=== PATIENT | female | born 1980 | race Caucasian/White ===

== ENCOUNTER 2017-07-12 12:47 | Emergency (ER) | payer BC, OTHER ==
--- NOTE | 2017-07-12 13:49 | ED Physician Documentation ---
History of Present Illness - Stated complaint Stated Complaint: BLEED/FEMALE - Chief complaint Chief Complaint: General - History obtained from History obtained from: Patient - History of Present Illness Timing: Other (This is a G 12 P4 who had a last normal menses approximately 4 weeks ago. She ovulated about 2 weeks ago and about a week ago had a faintly positive test and has had light vaginal bleeding without which is now gone without any pain. 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- and she was referred here by her OB in [place] for a RhoGam shot as her OB is on vacation.) Review of Systems Constitutional: reports: Reviewed and negative Cardiac: reports: Reviewed and negative Respiratory: reports: Reviewed and negative PD PAST MEDICAL HISTORY - Past Medical History Past Medical History: Yes Cardiovascular: Deep vein thrombosis, Other Other Past Medical History: RH+ - Past Surgical History Past Surgical History: Yes /WEAVING [employer]PER[employer]: section - Present Medications Home Medications: Ambulatory Orders Medication Instructions Recorded Confirmed No Known Home Medications [No 07/12/17 07/12/17 Known Home Medications] - Allergies Allergies/Adverse Reactions: Allergies Allergy/AdvReac Type Severity Reaction Status Date / Time No Known Drug Allergies Allergy Verified 07/12/17 13:01 - Social History Does the pt smoke?: No Smoking Status: Never smoker Does the pt drink ETOH?: No Does the pt have substance abuse?: No - Immunizations Immunizations are current?: No PD ED PE NORMAL - Vitals Vital signs reviewed: Yes - General General: Alert and oriented X 3, No acute distress - Abdomen Abdomen: Soft, Non tender - Neuro Neuro: Alert and oriented X 3, Normal speech - Psych Psych: Normal mood, Normal affect Results - Vitals Vitals: Vital Signs - 24 hr 07/12/17 13:02 Temperature 36.3 C L Heart Rate 66 Respiratory 18 Rate Blood Pressure 126/84 H O2 Saturation 100 Oxygen O2 Source Room air - Labs Labs: Laboratory Tests 07/12/17 14:13 HCG, Quant < 0.60 PD MEDICAL DECISION MAKING - ED course ED course: 36-year-old woman was referred here for potential RhoGam shot after a Faintly positive test at home followed by 2 negative tests. A beta- hCG was checked and undetectable here making RhoGam unnecessary. Departure - Departure Disposition: Home, Self Care Clinical Impression: Vaginal bleeding Condition: Good Record reviewed to determine appropriate education?: Yes Comments: Recheck as needed, your beta-hCG on the blood work is undetectable at this juncture so no specific follow-up is needed unless you have further issues. Your blood pressure was elevated today on check into the emergency department. This does not mean that you have hypertension, it is a common phenomenon to come to the emergency department and have elevated blood pressure. I recommend that you see your primary care physician within the week to have it rechecked when you are feeling better.
[2017-07-12 15:01] VITALS: BP 117/84
== END 2017-07-12 15:00 | disposition home or self-care (01) ==
LOC: ED 12:47
DX: N93.9 Abnormal uterine and vaginal bleeding, unspecified (principal); Z67.90 Unspecified blood type, Rh positive; R03.0 Elevated blood-pressure reading, without diagnosis of hypertension
CPT/HCPCS: 36415; 84702; 86900; 86901; 99282; 99283

== ENCOUNTER 2017-12-09 08:00 | Outpatient (CLI) | payer OTHER ==
[2017-12-09 19:28] LABS: BILIRUBIN,URINE NEGATIVE (NEGATIVE); GLUCOSE, URINE (UA) NEGATIVE (NEGATIVE); KETONES,URINE (UA) NEGATIVE (NEGATIVE); LEUKOCYTE ESTERASE, URINE NEGATIVE (NEGATIVE); NITRITE,URINE NEGATIVE (NEGATIVE); OCCULT BLOOD,URINE SMALL (NEGATIVE); PROTEIN,URINE NEGATIVE (NEGATIVE); UROBILINOGEN,URINE 0.2 (NORMAL) E.U./dL (NORMAL)
[2017-12-09 19:29] LABS: CLARITY,URINE CLEAR (CLEAR)
[2017-12-09 19:43] LABS: BACTERIA,URINE Rare /HPF (None Seen); RBC,URINE TNTC /HPF (0-5); SQUAMOUS EPITHELIAL CELL,UR RARE Squamous (<= Few)
== END 2017-12-09 08:01 | disposition home or self-care (01) ==
LOC: LAB.R 08:00
PROVIDERS: ATTEND Physician Assistant Medical
DX: N30.00 Acute cystitis without hematuria (principal)
CPT/HCPCS: 81001; 87086

== ENCOUNTER 2018-01-24 07:19 | Outpatient (CLI) | payer OTHER ==
[2018-01-24 10:41] LABS: BASOPHILS # (AUTO) 0.1 10^3/uL (0.0-0.1); BASOPHILS % (AUTO) 0.7 %; EOSINOPHILS # (AUTO) 0.4 10^3/uL (0.0-0.7); EOSINOPHILS % (AUTO) 4.3 %; HGB - HEMOGLOBIN 14.2 g/dL (12.0-16.0); LYMPHOCYTES # (AUTO) 2.6 10^3/uL (1.5-3.5); MEAN CORPUSCULAR HEMOGLOBIN 29.8 pg (27.0-31.0); MEAN CORPUSCULAR HGB CONC 35.3 g/dL (32.0-36.0); MEAN CORPUSCULAR VOLUME 84.5 fL (81.0-99.0); MEAN PLATELET VOLUME 9.8 fL (7.9-10.8); MONOCYTES # (AUTO) 0.6 10^3/uL (0.0-1.0); MONOCYTES % (AUTO) 7.2 %; NEUTROPHILS # (AUTO) 4.8 10^3/uL (1.5-6.6); NEUTROPHILS % (AUTO) 56.8 %; PLT - PLATELET COUNT 188 10^3/uL (130-450); RED BLOOD COUNT 4.75 10^6/uL (4.20-5.40); RED CELL DISTRIBUTION WIDTH 13.7 % (12.0-15.0); WHITE BLOOD COUNT 8.5 x10^3/uL (4.8-10.8)
[2018-01-24 10:47] LABS: ALBUMIN 4.3 g/dL (3.2-5.5); ALBUMIN/GLOBULIN RATIO 1.5 (1.0-2.2); ALKALINE PHOSPHATASE 43 IU/L (42-121); ALT ALANINE AMINOTRANSFERASE 24 IU/L (10-60); AST ASPARTATE AMINOTRANSFERASE 18 IU/L (10-42); BILIRUBIN,TOTAL 0.7 mg/dL (0.2-1.0); BUN - BLOOD UREA NITROGEN 21 mg/dL (6-20); CALCIUM 8.9 mg/dL (8.5-10.3); CARBON DIOXIDE - CO2 23 mmol/L (21-32); CHLORIDE 108 mmol/L (101-111); CHOL/HDL RATIO 6.4 (<4.4); CHOLESTEROL 211 mg/dL; CREATININE 0.8 mg/dL (0.4-1.0); GFR - MDRD 80 (>89); GLUCOSE 110 mg/dL (70-100); HDL CHOLESTEROL 33 mg/dL; LDL CHOLESTEROL,CALCULATED 156 mg/dL; LDL/HDL RATIO 4.7 (<4.4); SODIUM 138 mmol/L (135-145); TOTAL PROTEIN 7.2 g/dL (6.7-8.2); VLDL CHOLESTEROL 22 mg/dL
[2018-01-24 10:48] LABS: BILIRUBIN,URINE NEGATIVE (NEGATIVE); GLUCOSE, URINE (UA) NEGATIVE (NEGATIVE); KETONES,URINE (UA) NEGATIVE (NEGATIVE); LEUKOCYTE ESTERASE, URINE NEGATIVE (NEGATIVE); NITRITE,URINE NEGATIVE (NEGATIVE); OCCULT BLOOD,URINE TRACE-LYSE (NEGATIVE); PH,URINE 5.5 PH (5.0-7.5); PROTEIN,URINE NEGATIVE (NEGATIVE); UROBILINOGEN,URINE 0.2 (NORMAL) E.U./dL (NORMAL)
[2018-01-24 11:11] LABS: CLARITY,URINE CLEAR (CLEAR)
[2018-01-24 11:12] LABS: BACTERIA,URINE Rare /HPF (None Seen); RBC,URINE 0-5 /HPF (0-5); SQUAMOUS EPITHELIAL CELL,UR RARE Squamous (<= Few)
[2018-01-24 19:58] LABS: HB2 TOTAL 15.1 g/dL; HEMOGLOBIN A1C 0.49 g/dL; HEMOGLOBIN A1C % 5.1 % (4.6-6.2)
== END 2018-01-24 07:20 | disposition home or self-care (01) ==
LOC: LAB.F 07:19
PROVIDERS: ATTEND Physician Assistant Medical
DX: Z00.00 Encounter for general adult medical examination without abnormal findings (principal); N30.00 Acute cystitis without hematuria; E55.9 Vitamin D deficiency, unspecified; R73.01 Impaired fasting glucose
CPT/HCPCS: 36415; 80053; 80061; 81001; 82306; 83036; 83721; 84439; 84443; 85025; 87086

== ENCOUNTER 2018-02-08 10:39 | Outpatient (CLI) | payer OTHER | END 2018-02-08 10:40 | disposition home or self-care (01) | LOC: LAB.F 10:39 | PROVIDERS: ATTEND Physician Assistant Medical | DX: D68.61 Antiphospholipid syndrome (principal) | CPT/HCPCS: 36415; 85651 ==

== ENCOUNTER 2018-06-20 07:13 | Outpatient (CLI) | payer OTHER ==
[2018-06-20 12:44] LABS: CHOL/HDL RATIO 5.1 (<4.4); CHOLESTEROL 189 mg/dL; HDL CHOLESTEROL 37 mg/dL; LDL CHOLESTEROL,CALCULATED 115 mg/dL; LDL/HDL RATIO 3.1 (<4.4); VLDL CHOLESTEROL 37 mg/dL
[2018-06-22 16:12] LABS: THYROID PEROXIDASE ANTIBODIES <1 IU/mL (<9)
== END 2018-06-20 07:14 | disposition home or self-care (01) ==
LOC: LAB.F 07:13
PROVIDERS: ATTEND Physician Assistant Medical
DX: E03.9 Hypothyroidism, unspecified (principal); E78.5 Hyperlipidemia, unspecified; E55.9 Vitamin D deficiency, unspecified; E05.90 Thyrotoxicosis, unspecified without thyrotoxic crisis or storm
CPT/HCPCS: 36415; 80061; 82306; 83721; 84439; 84480; 84481; 86376; 86800

== ENCOUNTER 2018-07-24 08:00 | Outpatient (CLI) | payer OTHER | END 2018-07-24 23:59 | LOC: LAB.R 08:00 | PROVIDERS: ATTEND Physician Assistant Medical | DX: N39.0 Urinary tract infection, site not specified (principal) | CPT/HCPCS: 87086 ==

== ENCOUNTER 2019-10-08 07:00 | Outpatient (CLI) | payer OTHER | END 2019-10-08 23:59 | disposition home or self-care (01) | LOC: LAB.R 07:00 | PROVIDERS: ATTEND Registered Nurse | DX: R30.0 Dysuria (principal) | CPT/HCPCS: 87086 ==

== ENCOUNTER 2020-08-04 11:15 | Outpatient (CLI) | payer OTHER ==
[2020-08-04 20:03] LABS: BILIRUBIN,URINE NEGATIVE (NEGATIVE); GLUCOSE, URINE (UA) NEGATIVE (NEGATIVE); KETONES,URINE (UA) NEGATIVE (NEGATIVE); LEUKOCYTE ESTERASE, URINE SMALL (NEGATIVE); NITRITE,URINE NEGATIVE (NEGATIVE); OCCULT BLOOD,URINE SMALL (NEGATIVE); PROTEIN,URINE NEGATIVE (NEGATIVE); UROBILINOGEN,URINE 0.2 (NORMAL) E.U./dL (NORMAL)
[2020-08-04 20:06] LABS: CLARITY,URINE HAZY (CLEAR)
[2020-08-04 20:17] LABS: BACTERIA,URINE Rare /HPF (None Seen); RBC,URINE 0-5 /HPF (0-5); SQUAMOUS EPITHELIAL CELL,UR RARE Squamous (<= Few)
== END 2020-08-04 23:59 | disposition home or self-care (01) ==
LOC: LAB.R 11:15
PROVIDERS: ATTEND Physician Assistant Medical
DX: R30.0 Dysuria (principal)
CPT/HCPCS: 81001; 87086